=== PATIENT | male | born 1995 | race Caucasian/White ===

== ENCOUNTER 2018-02-18 17:55 | Emergency (ER) | payer OTHER ==
[~2018-02-18] VITALS: Ht 193 cm; Wt 66.0 kg
[2018-02-18 21:27] VITALS: BP 92/59
== END 2018-02-18 21:30 | disposition home or self-care (01) ==
LOC: EME 17:55
PROC: 3E0234Z Introduction of Serum, Toxoid and Vaccine into Muscle, Percutaneous Approach (ICD-10-PCS; principal; 2018-02-18)
DX: S60.511A Abrasion of right hand, initial encounter (principal); S50.311A Abrasion of right elbow, initial encounter; W18.39XA Other fall on same level, initial encounter; Y93.K1 Activity, walking an animal; Z23 Encounter for immunization; F17.200 Nicotine dependence, unspecified, uncomplicated
CPT/HCPCS: 73080; 73130; 99281; 99284